=== PATIENT | female | born 1980 | race African-American/Black ===

== ENCOUNTER 2022-02-08 02:38 | Emergency (ER) | payer SELFPAY ==
[2022-02-08 03:02] VITALS: BMI 46.5
[2022-02-08 03:47] LABS: BASO % 0.8 % (0-2.0); EOS % 1.4 % (0-4.5); HEMATOCRIT 31.2 % (32.4-45.2); HEMOGLOBIN 9.7 GM/dL (10.7-15.3); MCH 23.3 pg (25.7-33.7); MCHC 31.1 g/dl (32.0-36.0); MEAN CELL VOLUME 74.8 fl (80-96); MEAN PLT VOLUME 6.7 fl (7.5-11.1); MONO % 7.1 % (3.8-10.2); NEUT % 62.7 % (42.8-82.8); PLATELET COUNT 446 10^3/uL (134-434); RBC 4.18 M/mm3 (3.60-5.2); RDW 23.1 % (11.6-15.6); WHITE BLOOD COUNT 5.4 K/mm3 (4.0-10.0)
[2022-02-08 03:57] LABS: CALCIUM 8.7 mg/dL (8.5-10.1)
[2022-02-08 03:58] LABS: ALBUMIN 3.1 g/dl (3.4-5.0); BLOOD UREA NITROGEN 10.4 mg/dL (7-18)
[2022-02-08 04:01] LABS: CREATININE 0.7 mg/dL (0.55-1.3)
[2022-02-08 04:03] LABS: BILIRUBIN,TOTAL 0.2 mg/dL (0.2-1); TOT PROT 7.5 g/dl (6.4-8.2)
[2022-02-08 06:57] VITALS: BP 142/84; PULSE 87; RESP 20; TEMP 97.4
[2022-02-08 10:06] LABS: ANISOCYTOSIS 2+; MACROCYTOSIS 0; ROULEAU 1+
== END 2022-02-08 07:18 | disposition home or self-care (01) ==
LOC: JER 02:38
DX: D64.9 Anemia, unspecified (principal)
CPT/HCPCS: 36415; 80053; 84703; 85025; 99283-25